=== PATIENT | female | born 1990 | race Caucasian/White ===

== ENCOUNTER 2016-12-03 18:19 | Emergency (ER) | payer OTHER ==
[2016-12-03 18:42] VITALS: BMI 28.3
--- NOTE | 2016-12-03 19:04 | PDOC ---
History of Present Illness - History of Present Illness Initial Comments: 12/03/16 21:37 Patient is a 26 year old female with no significant medical hx who is presenting to the ED complaining of a stomach virus for five days. Patient reports her children were sick with a stomach virus earlier in the week with vomiting and diarrhea; she states that her and her developed the same symptoms. Five days ago the patient had nausea, vomiting, and diarrhea. She notes that her got better after 24 hours but she did not. The patient reports that her abdominal pain worsened and notices that it worsens after a meal. The patient's vomiting stopped two days ago but has continued to have watery diarrhea; today she had five episodes. The patient also complains of associated fever, body aches, generalized weakness, gas and bloating. Denies dysuria or any urinary complaints. Surgical Hx: Tubal ligation <Felipa Sue - Last Filed: 12/03/16 21:36> <Shaylee Flaherty - Last Filed: 12/03/16 22:15> - General Chief Complaint: Pain, Acute Stated Complaint: DIARRHEA Time Seen by Provider: 12/03/16 18:50 Past History <Felipa Sue - Last Filed: 12/03/16 21:36> - Past Medical History Asthma: No Cancer: No Cardiac Disorders: No Diabetes: No HTN: No Suicide Attempt (Hx): No Seizures: No Thyroid Disease: No Other medical history: DENIES. - Surgical History Abdominal Surgery: Yes - Reproductive History (#): 4 Para: 3 Tubal Ligation: Yes (march 15, 2015) - Immunization History Immunization Up to Date: Yes - Psycho/Social/Smoking Cessation Hx Anxiety: No Suicidal Ideation: No Smoking Status: No Smoking History: Never smoked Have you smoked in the past 12 months: No Number of Cigarettes Smoked Daily: 0 Hx Alcohol Use: No Drug/Substance Use Hx: No Substance Use Type: None Hx Substance Use Treatment: No <Shaylee Flaherty - Last Filed: 12/03/16 22:15> - Past Medical History Allergies/Adverse Reactions: Allergies Allergy/AdvReac Type Severity Reaction Status Date / Time No Known Allergies Allergy Verified 12/03/16 18:37 Home Medications: Ambulatory Orders Ranitidine [Zantac -] 150 mg PO BID #10 tablet 12/03/16 Ranitidine [Zantac -] 150 mg PO BID #14 tablet 12/03/16 Review of Systems - Review of Systems Comments:: 12/03/16 22:01 CONSTITUTIONAL: Present: fever, chills, generalized weakness Absent: diaphoresis, malaise, loss of appetite HEENT: Absent: rhinorrhea, nasal congestion, throat pain, throat swelling, difficulty swallowing, mouth swelling, ear pain, eye pain, visual changes CARDIOVASCULAR: Absent: chest pain, syncope, palpitations, irregular heart rate, lightheadedness , peripheral edema RESPIRATORY: Absent: cough, shortness of breath, dyspnea with exertion, orthopnea, wheezing, stridor, hemoptysis GASTROINTESTINAL: Present: abdominal pain, gas, abdominal distention, nausea, vomiting, diarrhea Absent: constipation, melena, hematochezia GENITOURINARY: Absent: dysuria, frequency, urgency, hesitancy, hematuria, flank pain, genital pain MUSCULOSKELETAL: Absent: myalgia, arthralgia, joint swelling SKIN: Absent: rash, itching, pallor HEMATOLOGIC/IMMUNOLOGIC: Absent: easy bleeding, easy bruising, lymphadenopathy, frequent infections ENDOCRINE: Absent: unexplained weight gain, unexplained weight loss, heat intolerance, cold intolerance NEUROLOGIC: Absent: headache, focal weakness or paresthesia, dizziness, unsteady gait, seizure, mental status changes, bladder or bowel incontinence. PSYCHIATRIC: Absent: anxiety, depression, suicidal or homicidal ideation, hallucinations <Felipa Sue - Last Filed: 12/03/16 21:36> *Physical Exam - Vital Signs Last Vital Signs Temp Pulse Resp BP Pulse Ox 98.3 F 88 19 111/64 97 12/03/16 18:38 12/03/16 18:38 12/03/16 18:38 12/03/16 18:38 12/03/16 18:38 - Physical Exam Comments: 12/03/16 22:03 GENERAL: Well developed, well nourished. Awake and alert. No acute distress. HEENT: Normocephalic, atraumatic. PERRLA, EOMI. No conjunctival pallor. Sclera are non- icteric. Moist mucous membranes. Oropharynx is clear. NECK: Supple. Full ROM. No JVD. Carotid pulses 2+ and symmetric, without bruits. No thyromegaly. No lymphadenopathy. CARDIOVASCULAR: Regular rate and rhythm. No murmurs, rubs, or gallops. Distal pulses are 2+ and symmetric. PULMONARY: No evidence of respiratory distress. Lungs clear to auscultation bilaterally. No wheezing, rales or rhonchi. ABDOMINAL: Soft. Non-tender. Non-distended. No rebound or guarding. No organomegaly. Normoactive bowel sounds. MUSCULOSKELETAL: Normal range of motion at all joints. No bony deformities or tenderness. No CVA tenderness. EXTREMITIES: No cyanosis. No clubbing. No edema. No calf tenderness. SKIN: Warm and dry. Normal capillary refill. No rashes. No jaundice. NEUROLOGICAL: Alert, awake, appropriate. Cranial nerves 2-12 intact. Normal speech. Gait is normal without ataxia. PSYCHIATRIC: Cooperative. Good eye contact. Appropriate mood and affect. <Felipa Sue - Last Filed: 12/03/16 21:36> - Vital Signs Last Vital Signs Temp Pulse Resp BP Pulse Ox 98.3 F 88 19 111/64 97 12/03/16 18:38 12/03/16 18:38 12/03/16 18:38 12/03/16 18:38 12/03/16 18:38 <Shaylee Flaherty - Last Filed: 12/03/16 22:15> ED Treatment Course - LABORATORY CBC & Chemistry Diagram: 12/03/16 20:00 12/03/16 20:00 - ADDITIONAL ORDERS Additional order review: Laboratory Results 12/03/16 12/03/16 20:00 20:00 Sodium 139 Potassium 3.9 Chloride 109 H Carbon Dioxide 20 L D Anion Gap 10 BUN 12 Creatinine 0.9 Creat Clearance w eGFR > 60 Random Glucose 98 D Calcium 9.8 Total Bilirubin 0.4 D AST 22 ALT 29 D Alkaline Phosphatase 72 D Total Protein 9.0 H D Albumin 4.8 D Urine Color Dkyellow Urine Appearance Slcloudy Urine pH 5.0 Ur Specific [place] 1.033 Urine Protein 1+ H Urine Glucose (UA) Negative Urine Ketones Negative Urine Blood Negative Urine Nitrite Negative Urine Bilirubin Negative Urine Urobilinogen Negative Ur Leukocyte Esterase Negative Urine RBC 15 Urine WBC 1 Ur Epithelial Cells Many Urine Bacteria Rare Urine Mucus Many 12/03/16 20:00 RBC 5.39 H D MCV 84.2 MCHC 33.6 RDW 12.9 MPV 8.4 Neutrophils % 67.7 Lymphocytes % 23.8 D Monocytes % 6.3 Eosinophils % 1.8 Basophils % 0.4 - Medications Given in the ED: ED Medications Discontinued Medications Generic Name Dose Route Start Last Admin Trade Name Samson PRN Reason Stop Dose Admin Sodium Chloride 1,000 mls @ 1,000 mls/hr 12/03/16 19:42 12/03/16 20:18 Normal Saline - IV 12/03/16 20:41 1,000 mls/hr ASDIR STA Administration <Felipa Sue - Last Filed: 12/03/16 21:36> - LABORATORY CBC & Chemistry Diagram: 12/03/16 20:00 12/03/16 20:00 <Shaylee Flaherty - Last Filed: 12/03/16 22:15> *DC/Admit/Observation/Transfer - Attestations Scribe Attestion: 12/03/16 22:04 Documentation prepared by Felipa Sue, acting as medical csr for Shaylee Flaherty MD. <Felipa Sue - Last Filed: 12/03/16 21:36> <Shaylee Flaherty - Last Filed: 12/03/16 22:15> Diagnosis at time of Disposition: Diarrhea Qualifiers: Diarrhea type: unspecified type Qualified Code(s): R19.7 - Diarrhea, unspecified - Discharge Dispostion Disposition: HOME Condition at time of disposition: Stable - Prescriptions Prescriptions: Ranitidine [Zantac -] 150 mg PO BID #10 tablet Ranitidine [Zantac -] 150 mg PO BID #14 tablet - Referrals Referrals: Keily Lyon MD [Primary Care Provider] - - Patient Instructions Printed Discharge Instructions: DI for Diarrhea and Traveler's Diarrhea -- Adult Additional Instructions: please return if you develop a fever.have worsening pain or start to have persistent vomiting
[2016-12-03] MEDS ORDERED: SODIUM CHLORIDE 1,000 ML IV STA (19:42)
[2016-12-03 20:13] LABS: BASOPHIL 0.4 % (0-2.0); EOSINOPHIL 1.8 % (0-4.5); MCH 28.3 pg (25.7-33.7); MCHC 33.6 g/dl (32.0-36.0); MEAN CELL VOLUME 84.2 fl (80-96); MEAN PLT VOLUME 8.4 fl (7.5-11.1); NEUTROPHILS 67.7 % (42.8-82.8); PLATELET COUNT 295 K/MM3 (134-434); RDW 12.9 % (11.6-15.6); WHITE BLOOD COUNT 7.6 K/mm3 (4.0-10.0)
[2016-12-03 20:23] LABS: URINE APPEARANCE SLCLOUDY; URINE BILIRUBIN NEGATIVE (NEGATIVE); URINE BLOOD NEGATIVE (NEGATIVE); URINE COLOR DKYELLOW; URINE GLUCOSE (UA) NEGATIVE (NEGATIVE); URINE KETONE NEGATIVE (NEGATIVE); URINE LEUK ESTERASE NEGATIVE (NEGATIVE); URINE NITRITE NEGATIVE (NEGATIVE); URINE PROTEIN 1+ (NEGATIVE); URINE UROBILINOGEN NEGATIVE E.U./dl (0.2-1.0)
[2016-12-03 20:27] LABS: URINE BACTERIA RARE /hpf (NONE SEEN); URINE MUCUS MANY; URINE RBC 15 /hpf (0-3); URINE WBC 1 /hpf (3-5)
[2016-12-03] MEDS ORDERED: FAMOTIDINE 20 MG/50 ML IVPB 50 ML IVPB ONE ×3 (20:30→20:53)
[2016-12-03 20:33] LABS: ALBUMIN 4.8 g/dl (3.4-5.0); ALK PHOS 72 U/L (45-117); ANION GAP 10 (8-16); BILIRUBIN,TOTAL 0.4 mg/dL (0.2-1.0); CALCIUM 9.8 mg/dL (8.5-10.1); CO2 20 mmol/L (21-32); CREATININE 0.9 mg/dL (0.55-1.02); GLUCOSE,RANDOM 98 mg/dL (74-106); SGOT/AST 22 U/L (15-37); SGPT/ALT 29 U/L (12-78)
[2016-12-03] MEDS ORDERED: MAG HYDROX/AL HYDROX/SIMETH 30 ML UNIT-DOSE CUP PO ONE (20:39)
[2016-12-03] MEDS ORDERED: MAG HYDROX/AL HYDROX/SIMETH 30 ML UNIT-DOSE CUP ONE (20:53)
[2016-12-03] MEDS ORDERED: KETOROLAC TROMETHAMINE 30 MG/1 ML VIAL IVPUSH ONE (21:52)
[2016-12-03] MEDS ORDERED: KETOROLAC TROMETHAMINE 30 MG/1 ML VIAL ONE (22:17)
[2016-12-03 22:38] VITALS: BP 127/74; PULSE 20; TEMP 98.6
== END 2016-12-03 22:36 | disposition home or self-care (01) ==
LOC: JER 18:19
PROC: 3E0337Z Introduction of Electrolytic and Water Balance Substance into Peripheral Vein, Percutaneous Approach (ICD-10-PCS; principal; 2016-12-03)
PROC: 3E033GC Introduction of Other Therapeutic Substance into Peripheral Vein, Percutaneous Approach (ICD-10-PCS; 2016-12-03)
DX: R19.7 Diarrhea, unspecified (principal)
CPT/HCPCS: 36415; 80053; 81003; 81015; 85025; 96361; 96365; 96375; 99283-25

== ENCOUNTER 2016-12-18 15:59 | Emergency (ER) | payer OTHER ==
[2016-12-18 16:08] VITALS: BMI 28.5
--- NOTE | 2016-12-18 16:23 | PDOC ---
[id number]; she is coughing and her child has flu and another child has fever and another child is coughing. She has no asthma. And she is afebrile. O2 sat is 99%. She appears well, and not in distress. EKG is NSR; rate of 65 *DC/Admit/Observation/Transfer Diagnosis at time of Disposition: Musculoskeletal pain, Sore throat - Discharge Dispostion Disposition: HOME Condition at time of disposition: Stable - Prescriptions Prescriptions: Acetaminophen [Acetaminophen 8 Hour] 650 mg PO TID PRN #20 tablet.er PRN Reason: Fever Oseltamivir Phosphate [Tamiflu -] 75 mg PO BID #10 capsule - Referrals Referrals: Keily Lyon MD [Primary Care Provider] - - Patient Instructions Printed Discharge Instructions: DI for Atypical Chest Pain, DI for Viral Pharyngitis Additional Instructions: If you develop fever,productive cough,diffuse muscle aches,mild vomiting- take tylenol or Motrin for pain or fever -rest -drink plenty of water -return of you develop difficulty breathing,intractable vomiting
--- NOTE | 2016-12-18 17:29 | PDOC ---
History of Present Illness - General Chief Complaint: Chest Pain Stated Complaint: CHEST PAIN Time Seen by Provider: 12/18/16 16:05 Past History - Past Medical History Allergies/Adverse Reactions: Allergies Allergy/AdvReac Type Severity Reaction Status Date / Time No Known Allergies Allergy Verified 12/18/16 16:04 Home Medications: Ambulatory Orders Ranitidine [Zantac -] 150 mg PO BID #10 tablet 12/03/16 Acetaminophen [Acetaminophen 8 Hour] 650 mg PO TID PRN #20 tablet.er 12/18/16 Oseltamivir Phosphate [Tamiflu -] 75 mg PO BID #10 capsule 12/18/16 Asthma: No Cancer: No Cardiac Disorders: No Diabetes: No HTN: No Suicide Attempt (Hx): No Seizures: No Thyroid Disease: No Other medical history: none - Surgical History Abdominal Surgery: Yes - Reproductive History (#): 4 Para: 3 Tubal Ligation: Yes (march 15, 2015) - Immunization History Immunization Up to Date: Yes - Psycho/Social/Smoking Cessation Hx Anxiety: No Suicidal Ideation: No Smoking Status: No Smoking History: Never smoked Have you smoked in the past 12 months: No Number of Cigarettes Smoked Daily: 0 Information on smoking cessation initiated: No Hx Alcohol Use: No Drug/Substance Use Hx: No Substance Use Type: None Hx Substance Use Treatment: No Review of Systems - Review of Systems Able to Perform ROS?: Yes Is the patient limited [place]er proficient: No Constitutional: No: Symptoms Reported, See HPI, Chills, Diaphoresis, Fever, Loss of Appetite, Malaise, Night Sweats, Weakness, Weight Stable, Unintentional Wgt. Loss, Unexplained wgt Loss, Other HEENTM: Yes: Nose Congestion, Throat Pain Respiratory: Yes: Cough Cardiac (ROS): No: Symptoms Reported, See HPI, Chest Pain, Edema, Irregular Heart Rate, Lightheadedness, Palpitations, Syncope, Chest Tightness, Other ABD/GI: No: Symptoms Reported, See HPI, Abdominal Distended, Abd. Pain w/ defecation, Blood Streaked Bowels, Constipated, Diarrhea, Difficulty Swallowing , Nausea, Poor Appetite, Poor Fluid Intake, Rectal Bleeding, Vomiting, Indigestion, Abdominal cramping, Tarry Stools, Other : No: Symptoms Reported, See HPI, Burning, Dysuria, Discharge, Frequency, Flank Pain, Hematuria, Incontinence, Pain, Urgency, Testicular Mass, Testicular Swelling, Lesions, Testicular Pain, Other Integumentary: No: Symptoms Reported, See HPI, Bruising, Change in Color, Change in Hair/Nails, Dryness, Erythema, Flushing, Lesions, Lumps, Pallor, Pruritus, Rash, Sweating, Other Neurological: No: Symptoms reported, See HPI, Headache, Numbness, Paresthesia, Pre-Existing Deficit, Seizure, Tingling, Tremors, Weakness, Unsteady Gait, Ataxia, Dizziness, Other Endocrine: No: Symptoms Reported, See HPI, Excessive Sweating, Flushing, Intolerance to Cold, Intolerance to Heat, Increased Hunger, Increased Thirst, Increased Urine, Unexplained Weight Gain, Unexplained Weight Loss, Change in Weight, Other Hematologic/Lymphatic: No: Symptoms Reported, See HPI, Anemia, Blood Clots, Easy Bleeding, Easy Bruising, Bleeding Diathesis, Lymph Node Abnormalities, Swollen Glands, Other *Physical Exam - Vital Signs Last Vital Signs Temp Pulse Resp BP Pulse Ox 98.1 F 79 18 99/62 100 12/18/16 16:05 12/18/16 16:05 12/18/16 16:05 12/18/16 16:05 12/18/16 16:05 - Physical Exam General Appearance: Yes: Nourished, Appropriately Dressed HEENT: positive: EOMI, VARGHESE, Normal ENT Inspection, Normal Voice Neck: positive: Supple Respiratory/Chest: positive: Lungs Clear Cardiovascular: positive: Regular Rhythm, Regular Rate Gastrointestinal/Abdominal: positive: Normal Bowel Sounds, Soft Musculoskeletal: positive: Normal Inspection Extremity: positive: Normal Inspection, Normal Range of Motion Integumentary: positive: Normal Color, Warm Neurologic: positive: Fully Oriented, Alert, Normal Response, Motor Strength 5/5 ED Treatment Course - ADDITIONAL ORDERS Additional order review: Laboratory Results 12/18/16 16:13 Urine HCG, Qual Negative 12/18/16 17:03 Group A Strep Rapid Antigen - Final Throat 12/18/16 16:13 Influenza Types A,B Antigen (ANNIE) - Final Nasopharyngeal Swab - Final Medical Decision Making - Medical Decision Making 12/18/16 17:25 26 yo female p/w complaint sore throat and some mild anterior chest soreness with breathing, low grade fever -she had an who was just cultured for influenza and is was POSITIVE -this pt has cleaerlungs, no exidates appreciated on throat exam -no respiratory distress ,no precordial chest pain -pt does not want cxr and it will be cencelled *DC/Admit/Observation/Transfer Diagnosis at time of Disposition: Musculoskeletal pain, Sore throat - Discharge Dispostion Disposition: HOME Condition at time of disposition: Stable - Prescriptions Prescriptions: Acetaminophen [Acetaminophen 8 Hour] 650 mg PO TID PRN #20 tablet.er PRN Reason: Fever Oseltamivir Phosphate [Tamiflu -] 75 mg PO BID #10 capsule - Referrals Referrals: Keily Lyon MD [Primary Care Provider] - - Patient Instructions Printed Discharge Instructions: DI for Atypical Chest Pain, DI for Viral Pharyngitis Additional Instructions: If you develop fever,productive cough,diffuse muscle aches,mild vomiting- take tylenol or Motrin for pain or fever -rest -drink plenty of water -return of you develop difficulty breathing,intractable vomiting
[2016-12-18] MEDS ORDERED: IBUPROFEN 600 MG TABLET (FP) PO ONE ×2 (17:35→17:54)
[2016-12-18 18:04] VITALS: BP 108/68; PULSE 76; TEMP 98.4
--- NOTE | 2016-12-19 13:47 | EKG ---
Test Reason : Blood Pressure : / mmHG Vent. Rate : 065 BPM Atrial Rate : 065 BPM P-R Int : 142 ms QRS Dur : 080 ms QT Int : 400 ms P-R-T Axes : 006 018 022 degrees QTc Int : 416 ms NORMAL SINUS RHYTHM NORMAL ECG NO PREVIOUS ECGS AVAILABLE Confirmed by DERIK QUINONEZ MD ([id number]) on 12/19/2016 1:47:06 PM Referred By: NEEMA Confirmed By:DERIK QUINONEZ MD
== END 2016-12-18 18:03 | disposition home or self-care (01) ==
LOC: JER 15:59
DX: R07.89 Other chest pain (principal); J02.9 Acute pharyngitis, unspecified; B97.89 Other viral agents as the cause of diseases classified elsewhere
CPT/HCPCS: 84703; 87070; 87430; 87804; 93005; 93010; 99283-25